=== PATIENT | female | born 1995 | race Caucasian/White ===

== ENCOUNTER 2024-05-04 04:42 | Emergency (ER) | payer OTHER, SELFPAY ==
[2024-05-04 04:53] VITALS: BP 131/85
[2024-05-04 05:06] VITALS: BMI 22.0
[2024-05-04 05:17] VITALS: BP 102/75
--- NOTE | 2024-05-04 05:37 | ED.GENMED ---
History of Present Illness
<Manuel Lange MD, Resident - Last Filed: 05/04/24 22:05>
General
Chief Complaint: Chest Pain
Source: patient
Time Seen by Provider: 05/04/24 04:56
Travel History
Have you traveled to any high risk areas for coronavirus over the past 14 days?: No
Have you had any contact with someone who has COVID-19?: No
Do you have any symptoms of coronavirus? Fever > 100 degrees, chills, cough, shortness of breath, sore throat, loss of taste or smell, muscle aches, or headache?: No
History of Present Illness
History of Present Illness:
Mellissa Torrez, age 29, has experienced right-sided chest pain for the past 2 years. Worsened since 1 am today. She was experiencing a period of increased stress 2 years ago when this pain came on. Does not recall any physical trauma or illness that
preceded the pain. She has not been evaluated for this pain but has an appointment with her PCP coming up to discuss this. There is focal tenderness on her right side of the chest and the pain is worse with movements of the right upper extremity;
raising the arm above her head makes the pain worse specifically. Denies palpitations, shortness of breath, nausea, vomiting, abdominal pain, back pain, lightheadedness, dizziness, or any other symptoms. Denies any recent illnesses or changes to her
health, except that she was switched to bupropion 2 months ago.
Past History
<Manuel Lange MD, Resident - Last Filed: 05/04/24 22:05>
Past History
ED Past Medical History: Other (Bipolar disorder; tobacco use disorder)
ED Past Surgical History: Other (Cleft palate repair as an ; finger surgery)
Social History
Tobacco: Former smoker
Alcohol: Occasional
Drug: None
Personal: Single
Living: with family
Review of Systems
<Manuel Lange MD, Resident - Last Filed: 05/04/24 22:05>
Review of Systems
All Other Systems: Not applicable
Constitutional: Reports no symptoms
EENT: Reports no symptoms
Respiratory: Reports no symptoms
Cardiac: Reports no symptoms
ABD/GI: Reports no symptoms
: Reports no symptoms
Musculoskeletal: Reports muscle pain (right-sided chest)
Skin: Reports no symptoms
Neurological: Reports no symptoms
Endocrine: Reports no symptoms
Hematologic/Lymphatic: Reports no symptoms
Psychiatric: Reports no symptoms
Phy Exam
<Manuel Lange MD, Resident - Last Filed: 05/04/24 22:05>
General Physical Exam
General Presentation: well appearing and no apparent distress
General Skin: warm and dry
General Habitus: normal
General Mental: alert
General Hydration: appears well hydrated
ENT Exam
ENT Exam: EOMI, pharynx normal, neck supple and normocephalic
Eye Exam
Eye Exam: PERRL, cornea clear and conjunctiva normal
Cardiovascular Exam
Cardiovascular Exam: regular rate/rhythm, no edema, no murmur and normal peripheral pulses
Pulmonary Exam
Pulmonary Exam: lungs clear, no respiratory distress, no rales, no crackles, no rhonchi, no stridor, no wheezing and no cough
Gastrointestinal Exam
Gastrointestinal Exam: normal bowel sounds, non tender, soft, no organomegaly, no pulsatile mass and non distended
Neurological Exam
Neurological Exam: alert, oriented x3, no motor deficits and speech normal
Musculoskeletal Exam
Musculoskeletal Exam: other (focal tenderness over right-sided chest; right-sided chest wall pain with movements of the right upper extremity)
Skin Exam
Skin Exam: normal color, warm/dry, no rash and no petechia
Psychiatric Exam
Psychiatric Exam: normal mood/affect
Scores
<Manuel Lange MD, Resident - Last Filed: 05/04/24 22:05>
Heart Score for Chest Pain Patients
Heart Score for Chest Pain Patients: 0
Heart Score Risk: 2.5% MACE over next 6 weeks
PERC Rule Criteria
PERC Score: 0
PE can be excluded by PERC: Yes
<Yamilet Chong, DO - Last Filed: 05/04/24 06:53>
Heart Score for Chest Pain Patients
STEMI patient?: No
History: Slightly or Non-Suspicious
ECG: Normal
Age: </= 45 years
Risk Factors: No Risk Factors
Troponin: </= Normal Limit
Heart Score for Chest Pain Patients: 0
Heart Score Risk: 2.5% MACE over next 6 weeks
PERC Rule Criteria
Age <50 years: Yes
HR <100 bpm: Yes
Room air oxygen sat >94%: Yes
History of DVT or PE: No
Recent trauma or surgery: No
Hemoptysis: No
Exogenous estrogen: No
Clinical signs suggestive of DVT: No
: No
Considered low risk for PE: Yes
PERC Score: 0
PE can be excluded by PERC: Yes
Course
<Manuel Lange MD, Resident - Last Filed: 05/04/24 22:05>
Orders/Labs/Results
Orders:
Orders
05/04/24 04:44
EKG [Electrocardiogram (*1)] Urgent
Reason for Study: Chest Pain
EKG- Treatment ONCE
05/04/24 05:30
CR Chest - 2 Views Urgent
Comment:
Reason For Exam: right-sided focal chest pain
05/04/24 05:31
Complete Blood Count/With Diff Urgent
Comprehensive Metabolic Panel Urgent
HCG, Serum Qualitative Screen Urgent
Troponin I Urgent
05/04/24 05:37
Test Result ONCE
05/04/24 05:42
Ketorolac [Toradol] 15 mg IV NOW STA
Abnormal Lab Results
05/04/24
05:31
RBC 4.16 L 10^6/uL
(4.20-5.40)
Hct 36.8 L %
(37.0-47.0)
05/04/24 05:31
05/04/24 05:31
Vital Signs
Initial and Last Documented VS:
Initial Vital Signs
Temp Pulse Resp BP Pulse Ox
98.3 F 78 22 131/85 98
05/04/24 04:53 05/04/24 04:53 05/04/24 04:53 05/04/24 04:53 05/04/24 04:53
Last Documented Vital Signs
Temp Pulse Resp BP Pulse Ox
98.3 F 68 16 112/74 99
05/04/24 04:53 05/04/24 06:58 05/04/24 06:58 05/04/24 06:58 05/04/24 06:58
<Yamilet Chong, DO - Last Filed: 05/04/24 06:53>
Orders/Labs/Results
Orders:
Orders
05/04/24 04:44
EKG [Electrocardiogram (*1)] Urgent
Reason for Study: Chest Pain
EKG- Treatment ONCE
05/04/24 05:30
CR Chest - 2 Views Urgent
Comment:
Reason For Exam: right-sided focal chest pain
05/04/24 05:31
Complete Blood Count/With Diff Urgent
Comprehensive Metabolic Panel Urgent
HCG, Serum Qualitative Screen Urgent
Troponin I Urgent
05/04/24 05:37
Test Result ONCE
05/04/24 05:42
Ketorolac [Toradol] 15 mg IV NOW STA
Abnormal Lab Results
05/04/24
05:31
RBC 4.16 L 10^6/uL
(4.20-5.40)
Hct 36.8 L %
(37.0-47.0)
05/04/24 05:31
05/04/24 05:31
Vital Signs
Initial and Last Documented VS:
Initial Vital Signs
Temp Pulse Resp BP Pulse Ox
98.3 F 78 22 131/85 98
05/04/24 04:53 05/04/24 04:53 05/04/24 04:53 05/04/24 04:53 05/04/24 04:53
Last Documented Vital Signs
Temp Pulse Resp BP Pulse Ox
98.3 F 68 16 112/74 99
05/04/24 04:53 05/04/24 06:58 05/04/24 06:58 05/04/24 06:58 05/04/24 06:58
<Yamilet Chong DO - Last Filed: 05/04/24 06:53>
*Radiology
Radiology exam reviewed: preliminary read by ED provider (Chest x-ray is unremarkable. Clear lung nagy. Normal mediastinum.)
*Pulse Oximetry
Patient hypoxic: no
*EKG
Interpreted by ED Provider?: Yes
Interpretation: normal
Comparison EKG: no comparison EKG present
Rate: normal
Rhythm: sinus
[place]: normal axis
Interval: normal interval
QRS Pattern: normal QRS
Ischemia: no ischemia
*C[employer] Interpretation
Rate: normal
Interpretation: normal
Rhythm: sinus
*Critical Care Note
Total Time (30-74mins, 75-104mins- exclusive of procedures): Not Applicable
ED Attending Note
<Manuel Lange MD, Resident - Last Filed: 05/04/24 22:05>
-
Portions of this chart may have been created with voice recognition software.� Occasional wrong word or��sound alike� substitutions may have occurred due to the inherent limitations of voice recognition software.
<Yamilet Chong DO - Last Filed: 05/04/24 06:53>
ED Attending Note
Patient seen and examined by attending physician: Yes
I performed a history and physical exam of patient and discussed management with resident, I reviewed resident's note and agree with documented findings and plan of care.: Yes
ED Attending Note:
29-year-old female with history of anxiety, bipolar disorder chronically maintained on Lamictal as well as Wellbutrin presents with 2-year history of right upper chest pain that is worse with movement of her right shoulder especially with raising
her right arm above her head. No other associated symptoms, chest pain is not pleuritic in nature, no cough no shortness of breath, no radicular signs or symptoms, no neck pain or back pain.
Moderate but temporary relief with Advil which she has taken once in the past.
No previous evaluations.
No risk factors for thromboembolism, not maintained on control pills, former smoker, no recent travel, no family history of thromboembolism.
She was concerned tonight when right-sided chest pain seemed worse than her chronic daily pain and somewhat pressure-like in nature.
29-year-old female appears in no acute distress, bright and alert, pleasant, easily communicative. Sipping water.
Heart is regular rate and rhythm. No murmur no rub.
Lungs are clear to auscultation, respirations are easy and nonlabored. Right upper chest wall pain with palpation. Palpation seems to exactly reproduce patient's pain complaint.
History and exam most consistent with musculoskeletal chest pain.
No risk factors for thromboembolism and nothing in history nor exam to suggest thromboembolism, chest pain is not pleuritic in nature. PERC score of 0.
EKG is within normal limits.
Labs are pending and will plan for chest x-ray, assess for potential pleural effusion, infiltrate, lung mass.
Will trial an IV dose of Toradol for pain.
05/04/2024 0651 AM
Patient resting comfortably and reports improvement in pain after IV Toradol.
Labs are all within normal limits and chest x-ray is unremarkable as well.
As above, highly suspect musculoskeletal chest pain and will initiate a course of ibuprofen 400 mg to be taken 3 times daily as needed for pain.
Recommend local heat, gentle stretching exercises and discussed importance of follow-up with her primary care physician for further evaluation. She may require a course of physical therapy, etc.
She requests a refill of her Lamictal 150 mg daily which has been provided.
She is also maintained on Wellbutrin but states she does not read a refill of this as yet.
Discharge Plan
Departure
Patient Disposition: Home (Routine Discharge)
Date of Disposition: 05/04/24
Time of Disposition: 06:41
Patient with high blood pressure during this ER visit?: No
Condition: Good
Discharge Problem:
CHRONIC RIGHT-SIDED CHEST PAIN, Anterior chest wall pain
Instructions: Chest Pain That Is Not Caused by the Heart (DC), Costochondritis (DC)
Prescriptions:
New
ibuprofen 400 mg tablet
400 mg PO Q8H PRN (Reason: Pain) Qty: 30 0RF
lamotrigine [Lamictal] 150 mg tablet
150 mg PO DAILY Qty: 30 1RF
Activity Restrictions/Additional Instructions:
Follow up with your family doctor next week for recheck and further evaluation of your chronic right sided chest pain.
Interventions
Interventions:
*Risk Screen - Suicide Last Done: 05/04/24 04:53
*General Assessment Last Done: 05/04/24 04:53
*Neglect/Abuse Screening Last Done: 05/04/24 04:53
ED- Fall Risk Assessment Last Done: 05/04/24 06:58
*ED COVID-19 Vaccine History Last Done: 05/04/24 04:53
*Nursing Disposition Last Done: 05/04/24 06:58
ED- Cardiac Assessment Last Done: 05/04/24 04:53
Discharge Date and Time
Discharge Date/Time: 05/04/24 06:59
Print Language: [facility]
[2024-05-04 05:40] LABS: % Basophils 0.2 % (0-2); % Eosinophils 1.2 % (0-6); % Immature Granulocytes 0.1 % (0-0.5); % Lymphocytes 37.3 % (20.5-51.1); % Monocytes 7.7 % (1.7-9.3); % Neutrophils 53.5 % (42.2-75.2); Absolute Eosinophils 0.1 10^3/uL (0-0.7); Absolute Monocytes 0.6 10^3/uL (0.1-0.6); Absolute Neutrophils 4.3 10^3/uL (1.4-6.5); Hematocrit 36.8 % (37.0-47.0); Hemoglobin 12.7 g/dL (12.0-16.0); Mean Corp Hgb Conc. 34.5 g/dL (33.0-37.0); Mean Corpuscular Hgb 30.5 pg (27.0-31.0); Mean Corpuscular Volume 88.5 fL (81.0-99.0); Mean Platelet Volume 9.2 fL (7.4-10.4); Nucleated Red Blood Cells % 0 %; Platelet Count 306 10^3/uL (130-400); Red Blood Cell Count 4.16 10^6/uL (4.20-5.40); Red Cell Dist. Width 12.7 % (11.5-14.5)
[2024-05-04] MEDS: TORADOL 15 MG IV (05:50)
[2024-05-04 06:00] VITALS: BP 110/85
[2024-05-04 06:06] LABS: ALT (SGPT) 29 U/L (0-35); AST (SGOT) 26 U/L (14-36); Albumin 4.2 g/dl (3.5-5.0); Alkaline Phosphatase 111 U/L (38-126); Calcium 9.6 mg/dl (8.4-10.2); Carbon Dioxide 25 mmol/L (22-30); Chloride 105 mmol/L (98-107); Glucose 91 mg/dl (70-99); Potassium 3.6 mmol/L (3.5-5.1); Sodium 142 mmol/L (135-145); Total Bilirubin 0.5 mg/dl (0.2-1.3); Total Protein 6.9 g/dl (6.3-8.2)
[2024-05-04 06:12] LABS: HCG, Serum Qualitative Screen Negative
[2024-05-04 06:17] LABS: Troponin I < 0.012 ng/ml
[2024-05-04 06:19] LABS: Blood Urea Nitrogen 11 mg/dl (7-17); Estimated Creatinine Clearance 74 ml/min; eGFR > 60.00
[2024-05-04 06:58] VITALS: BP 112/74
== END 2024-05-04 06:59 | disposition home or self-care (01) ==
LOC: EMR 04:42
PROVIDERS: Student in an Organized Health Care Education/Training Program; EMERGENCY PHYSICIAN Emergency Medicine
DX: R07.89 Other chest pain (principal); F41.9 Anxiety disorder, unspecified; F31.9 Bipolar disorder, unspecified
CPT/HCPCS: 99285; 96374; 71046; 80053; 84484; 84703; 85025; 93005